=== PATIENT | male | born 1980 | race Caucasian/White ===

== ENCOUNTER → 2017-06-27 | Outpatient (REF) | payer BC ==
[2017-06-27 13:30] LABS: TESTOSTERONE 415 NG/DL (241-827)
[2017-06-27 13:30] LABS: PROLACTIN 10.4 NG/ML (2.1-17.7)
== END ==
LOC: M LAB REF 12:03
DX: R68.82 Decreased libido (principal); R53.83 Other fatigue
CPT/HCPCS: 84146

== ENCOUNTER 2017-08-11 08:25 | Day surgery (SDC) | payer BC ==
[2017-08-11] MEDS: NS 1,000 ML IV (09:08)
[2017-08-11] MEDS ORDERED: LIDOCAINE 2% INJ 100 MG/5 ML SDV (FOR ANES.) As Ordered (09:34)
[2017-08-11] MEDS ORDERED: PROPOFOL 200 MG/20 ML VIAL As Ordered ×2 (09:34)
== END 2017-08-11 10:02 | disposition home or self-care (01) ==
LOC: M OPP 08:25
DX: K62.5 Hemorrhage of anus and rectum (principal); R19.7 Diarrhea, unspecified; K64.1 Second degree hemorrhoids
CPT/HCPCS: 45380

== ENCOUNTER → 2019-06-22 | Outpatient (REF) | payer OTHER ==
[~2019-06-22] MED LIST: BUPR150T3; MULT1TAB10 PO; PROV108A; RANI150T
== END ==
LOC: M LAB REF 17:24
PROVIDERS: ATTEND Dermatology
DX: D48.9 Neoplasm of uncertain behavior, unspecified (principal)

== ENCOUNTER → 2020-01-21 | Outpatient (REF) | payer OTHER ==
[2020-01-21 17:12] LABS: ALBUMIN 4.3 GM/DL (3.2-5.2); ALT/SGPT 75 U/L (12-78); BLOOD UREA NITROGEN 17 MG/DL (7-18); CALCIUM LEVEL 9.7 MG/DL (8.5-10.1); CARBON DIOXIDE LEVEL 33 MEQ/L (21-32); CHLORIDE LEVEL 103 MEQ/L (98-107); CREATININE FOR GFR 0.92 MG/DL (0.70-1.30); GLOMERULAR FILTRATION RATE > 60.0 (>60); GLUCOSE, FASTING 99 MG/DL (70-100); POTASSIUM SERUM 4.4 MEQ/L (3.5-5.1); SODIUM LEVEL 138 MEQ/L (136-145); TOTAL PROTEIN 7.7 GM/DL (6.4-8.2)
== END ==
LOC: M LABDRAWC 15:45
PROVIDERS: ATTEND Physician Assistant
DX: B35.1 Tinea unguium (principal)

== ENCOUNTER → 2021-07-14 | Outpatient (REF) | payer OTHER ==
[~2021-07-14] MED LIST changes: +BUPR150T12; -BUPR150T3
== END ==
LOC: M SFHCDERM 16:08
PROVIDERS: ATTEND Nurse Practitioner Family
DX: D22.5 Melanocytic nevi of trunk (principal)

== ENCOUNTER → 2022-12-16 | Outpatient (CLI) | payer OTHER ==
[~2022-12-16] MED LIST changes: +ALBU6.7H6; -PROV108A
== END ==
LOC: M RAD 13:02
PROVIDERS: ATTEND Family Medicine
DX: R35.0 Frequency of micturition (principal)

== ENCOUNTER → 2024-01-17 | Outpatient (CLI) | payer OTHER | LOC: M WUC 13:09 | PROVIDERS: ATTEND Nurse Practitioner Family | DX: Z15.01 Genetic susceptibility to malignant neoplasm of breast (principal); Z15.03 Genetic susceptibility to malignant neoplasm of prostate ==

== ENCOUNTER → 2025-01-28 | Outpatient (CLI) | payer OTHER | LOC: M WUC 12:19 | PROVIDERS: ATTEND Nurse Practitioner Family | DX: Z15.01 Genetic susceptibility to malignant neoplasm of breast (principal); Z15.03 Genetic susceptibility to malignant neoplasm of prostate; Z15.07 Genetic susceptibility to malignant neoplasm of urinary tract; Z15.89 Genetic susceptibility to other disease ==